=== PATIENT | female | born 1955 | race Caucasian/White ===

== ENCOUNTER 2017-07-17 22:13 | Emergency (ER) | payer OTHER ==
[~2017-07-17] VITALS: Ht 160 cm; Wt 120.0 kg
[2017-07-18] MEDS ORDERED: NORCO 5/3251 TABLET PO (00:56)
[2017-07-18 01:30] VITALS: BP 161/81
== END 2017-07-18 01:30 | disposition home or self-care (01) ==
LOC: EME 22:13
DX: S83.91XA Sprain of unspecified site of right knee, initial encounter (principal); X58.XXXA Exposure to other specified factors, initial encounter; Y93.01 Activity, walking, marching and hiking
CPT/HCPCS: 73564; 99281; 99284